=== PATIENT | male | born 1955 | race Caucasian/White ===

== ENCOUNTER 2022-11-13 01:15 | Outpatient (CLI) | payer MEDICARE, MEDICAID, SELFPAY ==
--- NOTE | 2022-11-13 08:15 | DI.CT_ITS ---
Exam(s) CT LOWER EXTREMITY RT WO EXAM: CT LOWER EXTREMITY RT WO CLINICAL HISTORY: Known fx of old arthroplasty,rt hip fx,s72.001A. TECHNIQUE: Imaging Protocol: Axial computed tomography images with coronal and sagittal reformatted images were created and reviewed. COMPARISON: CR XR HIP RIGHT W PELVIS from 10/21/2022 FINDINGS: There is artifact from the patient's right total hip replacement. Bones: There is a longitudinally oriented fracture involving the anterolateral aspect of the proxima l femur. Its inferior aspect is just inferior just below the greater trochanter and extends superior ly. It lies anterior to the femoral prosthetic component. There does appear to be mild periosteal r eaction consistent with some interval healing. On the axial images are also appears to be a nondispl aced fracture of the posterior proximal femur which appear separate. No other fractures identified. Bony alignment is satisfactory. No cellulitic or osteomyelitic changes are identified. The right h ip arthroplasty appears intact. No lytic or sclerotic lesions are identified. Soft Tissues: There is mild edema in the soft tissues lateral to the hip. Incidental note is made of diverticulosis in the colon. Atherosclerosis is present. IMPRESSION: 1. Nondisplaced periprosthetic fracture involving the proximal femur. Please see the above discussio n for complete details. 2. Right total hip arthroplasty. RADIATION DOSE DELIVERED: 696.04mGy.cm Total DLP 696.04mGy.cm Total DLP DATA REPOSITORY: All CT scans at this facility are submitted to the National Radiology Data Registry (NRDR) Dose Index Registry (DIR) with the [employer] ([employer]). RADIATION OPTIMIZATION: All CT scans at this facility use at least one of these dose optimization te chniques: automated exposure control; mA and/or kV adjustment per patient size (includes targeted exa ms where dose is matched to clinical indication); or iterative reconstruction.
== END 2022-11-13 01:35 ==
PROVIDERS: PCP Family Medicine; Visit Provider Family Medicine
DX: S72.001A Fracture of unspecified part of neck of right femur, initial encounter for closed fracture (principal); T84.84XA Pain due to internal orthopedic prosthetic devices, implants and grafts, initial encounter; X58.XXXA Exposure to other specified factors, initial encounter; Z96.641 Presence of right artificial hip joint
CPT/HCPCS: 73700

== ENCOUNTER 2022-11-28 15:52 | Outpatient (CLI) | payer MEDICARE, MEDICAID, SELFPAY ==
--- NOTE | 2022-11-28 06:00 | DI.RAD_ITS ---
Exam(s) XR PAIN CLINIC LUMBAR SP 2V EXAM: XR PAIN CLINIC LUMBAR SP 2V CLINICAL HISTORY: Dx: Sacroiliac Joint Dysfunction TECHNIQUE: 2D and realtime digital imaging was performed. CONTRAST MATERIAL: Refer to procedure report. COMPARISON: No exams were available for comparison FINDINGS: Fluoroscopy was provided for Dr. Costello during the performance of a left sacroiliac joint injection. Please refer to the procedure report for complete details. Ka,r=12.1 mGy IMPRESSION:
[2022-11-28 16:02] VITALS: BP 145/68; PULSE 84; RESP 20; TEMP 36.7; O2SAT 96
[2022-11-28] MEDS: Omnipaque 240 MG/ML 50 ML BTL IJ (16:38)
[2022-11-28] MEDS: methylPREDNISolone ACETATE 80 MG/ML VIAL IJ (16:38)
--- NOTE | 2022-11-28 16:41 | PDOC.PAIN ---
Date of service: 11/28/22 Time of Service: 16:41 Pain Managment Procedure Note Procedure Note Procedure Note: INTRA-ARTICULAR SI JOINT INJECTION Juan Torres has been referred to the [facility] for intra-articular SI joint injection. COMMENTS: I previously evaluated him in the clinic. Pre-procedure pain VAS to the low back was 8/10. Dx: Sacroiliac joint dysfunction Patient was interviewed and the medical record reviewed. There were no medical, pharmacologic, radiographic or other structural contraindications to attempting fluoroscopically guided intra-articular SI joint injection. Risks and expected side effects as well as potential benefit of the procedure were reviewed and voiced concerns addressed. The printed consent form was signed and witnessed. Standard time-out procedure was performed. Patient was placed in the prone position on the fluoroscopy table and automated blood pressure cuff and pulse oximeter applied. The skin entry point for approaching the bilateral SI joints was identified under the most advantageous fluoroscopic view and marked. Following thorough Chlorhexadine preparation of the skin and draping and 1% lidocaine infiltration of the skin entry point and subcutaneous tissues, a 22 gauge spinal needle was placed under fluoroscopic guidance into the bilateral SI joints was identified under the most advantageous fluoroscopic view and marked. Intra-articular placement was confirmed by a clear arthrogram resulting from the injection of 0.25ml Omnipaque 240, 1ml 1% lidocaine, and 1/4 cc of Depomedrol (80 mg/cc) were injected intra-articularily into each jont. With an initial reproduction of a significant component of the usual pain. Each needle was flushed with 1/2 cc of 1% Lidocaine and removed without difficulty. Vital signs were stable throughout the procedure and were as recorded in the docflowsheet by the nursing staff. If given, dosages of intravenous drugs for anxiolysis and analgesia were documented in MAR. Follow up plans and appointments were discussed with the patient. Post procedure instruction was given as documented in nursing documentation and having met discharge criteria, and was discharged from the [facility]. COMMENTS: Post-procedure low back pain VAS was 6/10. Piero Costello DO, MPH [facility] CC: Anthony Valdes DO
[2022-11-28 16:44] VITALS: BP 149/74; PULSE 78; RESP 13; O2SAT 99
== END 2022-11-28 15:53 | disposition home or self-care (01) ==
LOC: PC 15:52
PROVIDERS: PCP Family Medicine; Visit Provider Preventive Medicine Occupational Medicine
DX: M46.1 Sacroiliitis, not elsewhere classified (principal); M54.50 Low back pain, unspecified
CPT/HCPCS: 27096; 72100; J1040; Q9967

== ENCOUNTER 2022-12-03 14:36 | Outpatient (CLI) | payer MEDICARE, MEDICAID, SELFPAY ==
--- NOTE | 2022-12-03 13:55 | DI.RAD_ITS ---
Exam(s) XR HIP RT AP LAT ONLY EXAM: XR HIP RT AP LAT ONLY CLINICAL HISTORY: Right hip pain. TECHNIQUE: 2D digital imaging was performed. COMPARISON: CT scan of 11/13/2022 FINDINGS: Right hip prosthesis again noted. There is an ipsilateral intertrochanteric fracture which appears stable when compared to the prior CT scan of 11/13/2022. No further displacement evident on these images. No additional fractures evide nt. IMPRESSION: Intertrochanteric fracture of the right hip appears stable. Prosthesis appears stable. DATA REPOSITORY: RADIATION DOSE DELIVERED:
== END 2022-12-03 14:37 | disposition home or self-care (01) ==
LOC: DIORS 14:36
PROVIDERS: PCP Family Medicine; Referring Provider Family Medicine; Visit Provider Physician Assistant
DX: S72.001A Fracture of unspecified part of neck of right femur, initial encounter for closed fracture (principal); T84.84XA Pain due to internal orthopedic prosthetic devices, implants and grafts, initial encounter; Z47.1 Aftercare following joint replacement surgery; Z96.641 Presence of right artificial hip joint; M97.01XA Periprosthetic fracture around internal prosthetic right hip joint, initial encounter; W19.XXXA Unspecified fall, initial encounter
CPT/HCPCS: 99203; 73502

== ENCOUNTER 2023-01-14 14:16 | Outpatient (CLI) | payer MEDICARE, MEDICAID, SELFPAY ==
--- NOTE | 2023-01-14 13:45 | DI.RAD_ITS ---
Exam(s) XR HIP RT AP LAT ONLY EXAM: XR HIP RT AP LAT ONLY CLINICAL HISTORY: F/U FRACTURE. TECHNIQUE: 2D digital imaging was performed of the right hip. Two images were obtained. AP pelvis a nd lateral right hip views were obtained. COMPARISON: CR XR HIP RT AP LAT ONLY from 12/03/2022 FINDINGS: BONES: There has been no change in alignment of the fracture involving the proximal femur. The patie nt has a right total hip replacement which appears unremarkable. No bony destructive lesion is seen. JOINTS: No dislocation present. SOFT TISSUE: Normal. IMPRESSION: No acute abnormality. Stable proximal right femoral fracture. DATA REPOSITORY: RADIATION DOSE DELIVERED:
== END 2023-01-14 14:17 | disposition home or self-care (01) ==
LOC: DIORS 14:17
PROVIDERS: PCP Family Medicine; Referring Provider Family Medicine; Visit Provider Student in an Organized Health Care Education/Training Program
DX: M97.01XA Periprosthetic fracture around internal prosthetic right hip joint, initial encounter (principal); Z96.641 Presence of right artificial hip joint
CPT/HCPCS: 99213; 73502

== ENCOUNTER → 2023-03-13 18:11 | Outpatient (CLI) | payer MEDICARE, MEDICAID, SELFPAY ==
--- NOTE | 2023-03-13 11:30 | DI.RAD_ITS ---
Exam(s) XR LUMBAR SPINE COMP W FLEX/EX EXAM: XR LUMBAR SPINE COMP W FLEX/EX CLINICAL HISTORY: Worsening low back pain M54.50. TECHNIQUE: 2D digital imaging was performed. Seven views. Additional flexion and extension lateral views were performed in addition to the routine views. COMPARISON: No exams were available for comparison FINDINGS: BONES: No fracture or destructive lesion. Vertebral body heights are maintained. Mild facet hypertro phy identified at L4-5 and L5-S1.. Bilateral hip prostheses noted. DISKS: Intervertebral disc spaces are maintained. ALIGNMENT: Lumbar spinal alignment is within normal limits. There is no subluxation with flexion or extension. SOFT TISSUE: Normal. IMPRESSION: Mild degenerative changes. DATA REPOSITORY: RADIATION DOSE DELIVERED:
== END ==
PROVIDERS: PCP Family Medicine; Visit Provider Preventive Medicine Occupational Medicine
DX: M46.94 Unspecified inflammatory spondylopathy, thoracic region (principal); Z96.643 Presence of artificial hip joint, bilateral
CPT/HCPCS: 72114